=== PATIENT | male | born 2005 | race Caucasian/White ===

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

== ENCOUNTER 2024-03-01 22:05 | Emergency (ER) | payer MEDICAID ==
--- NOTE | 2024-03-01 22:08 | ERPHSYRPT ---
- History of Present Illness Time Seen by Provider: 03/01/24 22:08 Source: patient, family Exam Limitations: no limitations Physician History: This is a 18-year-old white male patient who presents to the emergency department accompanied by his mother and is a patient of Dr. Hernandez. He was lifting weights 2 days ago and felt a pull in the left side of his posterior neck, shoulder and lower back. Patient states he used an [id number] topical pain relief medication without much benefit. He did not use any Tylenol or ibuprofen medication. He did not fall or suffer any direct trauma to these areas. Timing/Duration: day(s) (2) Method of Injury: lifting, other (Strain) Quality: aching Back Pain Location: paraspinous muscles Severity of Pain-Max: mild (Moderate) Modifying Factors: Improves With: movement Associated Symptoms: muscle spasms, No urinary incontinence, No loss of bowel control, No numbness in legs/feet, No sensory/motor loss Previous symptoms: no prior history, no recent treatment Allergies/Adverse Reactions: No Known Drug Allergies Allergy (Verified 03/01/24 22:12) Hx Tetanus, Diphtheria Vaccination/Date Given: Yes Hx Influenza Vaccination/Date Given: No Hx Pneumococcal Vaccination/Date Given: No Travel Risk - International Travel Have you traveled outside of the country in past 3 weeks: No - Emerging Infectious Disease Are you exhibiting symptoms associated with any current EIDs: No - Review of Systems Constitutional: No Symptoms Eyes: No Symptoms, Foreign Body Sensation Respiratory: No Symptoms Cardiac: No Symptoms Abdominal/Gastrointestinal: No Symptoms Genitourinary Symptoms: No Symptoms Musculoskeletal: Other (Tenderness to the paraspinous muscle in the cervical spine level, left side as well as posterior shoulder on the left and left paraspinous muscles lumbar level) Skin: No Symptoms Neurological: No Symptoms Psychological: No Symptoms Endocrine: No Symptoms Hematologic/Lymphatic: No Symptoms Immunological/Allergic: No Symptoms All Other Systems: Reviewed and Negative - Past Medical History Pertinent Past Medical History: No - Past Surgical History Past Surgical History: Yes Other Surgical History: TUBES IN EARS - Social History Smoking Status: Never smoker Exposure to second hand smoke: Yes Drug Use: none Patient Lives Alone: No - Nursing Vital Signs Nursing Vital Signs: Initial Vital Signs Temperature 99.1 F 03/01/24 22:13 Pulse Rate 103 H 03/01/24 22:13 Respiratory Rate 18 03/01/24 22:13 Blood Pressure 145/86 03/01/24 22:13 O2 Sat by Pulse Oximetry 98 03/01/24 22:13 Pain Scale Pain Intensity [Right Lower 8 Lateral Back] Pain Intensity 8 - Physical Exam General Appearance: no apparent distress, alert Eye Exam: PERRL/EOMI, eyes nml inspection Ears, Nose, Throat Exam: normal ENT inspection, moist mucous membranes Neck Exam: normal inspection, non-tender, supple, full range of motion Respiratory Exam: airway intact, No chest tenderness, No respiratory distress Gastrointestinal Exam: No tenderness Rectal Exam: not done Back Exam: normal inspection, normal range of motion, No CVA tenderness, No ve rtebral tenderness Extremity Exam: normal inspection, normal range of motion, pelvis stable Neurologic Exam: alert, oriented x 3, cooperative, 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 as tested, normal mood/affect, nml cerebellar function, nml station & gait, sensation nml Skin Exam: normal color, warm, dry Lymphatic Exam: adenopathy SpO2 Interpretation: normal O2 Delivery: Room Air - Course Nursing assessment & vital signs reviewed: Yes - Progress Progress: unchanged, pain not gone completely Progress Note: 03/01/24 22:34 My medical decision making and the assignment of low complexity to this patient's medical issue today is based on review of the patient's past medical history, review of the patient's medication list, history present of present illness and physical findings on examination. No radiographic or laboratory studies are necessary in this patient as he suffered no acute, trauma. Differential diagnosis includes but is not limited to muscle spasm, muscular strain, sciatica Counseled pt/family regarding: diagnosis, need for follow-up Medical Desision Making - Independent Historian Additional History obtained from: Mother - Diagnostic Testing Diagnostic test were ordered, analyzed, and reviewed by me: No - Risk of complications The pt has a mod risk of morbidity or mortality based on: Need for prescription drug management - Departure Departure Disposition: Home Clinical Impression: Muscle strain Condition: Stable Critical Care Time: No Referrals: HERMINIO HERNANDEZ MD [Primary Care Provider] - Follow up/PCP as directed Additional Instructions: Drink plenty of fluids. May apply topical pain relief medication as you have been doing. Add Tylenol and ibuprofen to the prescription medication that I sent to your pharmacy. May also apply low to moderate heat to the tender areas 2-3 times a day for the next 48 hours. Do not apply the heat directly to your skin. Call your primary care provider on 03/04/2024. Prescriptions: Orphenadrine Citrate 100 mg [Norflex 100 MG Tablet] 100 mg PO BID #10 tab
[2024-03-01 22:21] VITALS: TEMP 99.1
[2024-03-01] MEDS ORDERED: TYLENOL 325 MG ONE (22:29)
[2024-03-01] MEDS ORDERED: MOTRIN 600 MG ONE (22:29)
[2024-03-01] MEDS ORDERED: Norflex 100 MG Tablet PO ONE (22:29)
[2024-03-01] MEDS: MOTRIN 600 MG PO ONE (22:31)
[2024-03-01] MEDS: TYLENOL 325 MG PO ONE (22:31)
[2024-03-01] MEDS: Norflex 100 MG Tablet PO ONE (22:31)
[2024-03-01 22:39] VITALS: BP 124/79; PULSE 87; RESP 17; O2SAT 96
== END 2024-03-01 22:44 | disposition home or self-care (01) ==
LOC: ED 22:05
DX: S16.1XXA Strain of muscle, fascia and tendon at neck level, initial encounter (principal); S46.912A Strain of unspecified muscle, fascia and tendon at shoulder and upper arm level, left arm, initial encounter; S39.012A Strain of muscle, fascia and tendon of lower back, initial encounter
CPT/HCPCS: 99282; A9270-GY